=== PATIENT | female | born 1975 | race Caucasian/White ===

== ENCOUNTER 2024-04-18 10:33 | Outpatient (REF) | payer BC, SELFPAY ==
--- NOTE | ~2024-04-18 | XR_ITS ---
EXAMINATION: XR KNEE, LEFT CLINICAL INFORMATION: Pain in left knee COMPARISON: None available. TECHNIQUE: Three views of the left knee. FINDINGS: Small tricompartmental osteophytes. Moderate narrowing of the medial compartment. No significant joint effusion. XR/XR knee LT 3V IMPRESSION: Moderate degenerative changes. Electronically signed by: Marcela Haro MD 05/15/2024 10:05 AM EDT
== END 2024-04-18 10:34 | disposition home or self-care (01) ==
LOC: HO.HOSX 10:33
PROVIDERS: PCP Internal Medicine; Visit Provider Orthopaedic Surgery
DX: M25.562 Pain in left knee (principal)
CPT/HCPCS: 73562

== ENCOUNTER 2024-04-18 11:07 | Outpatient (AMB) | payer BC, SELFPAY ==
--- NOTE | 2024-04-18 11:07 | MHC.OFFVIS ---
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 She describes her pain as sharp in nature. Most of the pain is along the medial aspect of her knee. Her pain has gotten worse over the last year in spite of continued non operative treatments. She has been to formal physical therapy which seemed to aggravate her pain. She has also tried Tylenol and anti-inflammatory medicines which gave her minimal relief. She also tried prednisone which gave her only temporary relief. She has had 2 cortisone injections. The most recent injection gave her no relief. She states that her left knee will give out several times per day. She was told by another orthopedic surgeon that she might need total knee replacement surgery. Allergies No Known Allergies Allergy (Verified 04/18/24 11:08) Medication List - Last Reconciled 04/18/24 by Gerhard Martinez MD estradiol (Climara) 1 patch transdermal QWEEK progesterone micronized mg PO semaglutide (weight loss) (Wegovy) mg subcut Physical Exam Const Other: Well-nourished well-developed very friendly female awake alert and oriented x3 in no acute distress Extrem Other: Bilateral lower extremity examination shows good capillary refill, no skin lesions noted, normal sensation light touch Left knee examination shows a minimal effusion, mild crepitus with range of motion, tenderness along her medial joint line, positive Lazaro's test, no instability Results Reviewed Results Reviewed: Standing full weight-bearing x-rays of the patient's left knee show mild to moderate joint space narrowing, no acute bony abnormalities MRI of the patient's left knee shows mild to moderate diffuse degenerative changes as well as a tear of the medial meniscus, no acute bony abnormalities Assessment & Plan Assessment & Plan (1) Left knee pain: Code(s): M25.562 - Pain in left knee Category: Medical Plan Mrs. Garcia presents with progressively worsening left knee pain and mechanical symptoms due to early degenerative joint disease as well as a tear of her medial meniscus. I had a lengthy discussion with the patient regarding the treatment options. She wishes to hold off on total knee replacement surgery for as long as possible. The risks and benefits of left knee arthroscopic surgery were discussed at length with the patient. The patient does understand that she may not get 100% relief of her symptoms depending on the severity of her degenerative changes. I do feel that the arthroscopic procedure would give her significant relief of her mechanical symptoms and possibly her pain. The patient wishes to proceed with left knee arthroscopic surgery. Surgery will most likely involve left knee arthroscopic partial medial meniscectomy. She will be scheduled for next available date. She will follow-up as instructed. Feel free to call me at any time should questions regarding her orthopedic management arise. Thank you very much for asking me to see this very friendly patient. I spent 20 minutes in reviewing the patient's records and imaging studies, seeing the patient and documenting in the medical record. Orders: Orders XR knee LT 3V Today M25.562 - Pain in left knee Medications: New meloxicam 15 mg PO DAILY PRN 30 tabs 2RF pain Coding Level of Care Code Est Pt Level 3 (87622) Diagnoses Left knee pain M25.562
== END 2024-04-18 11:36 | disposition home or self-care (01) ==
LOC: HO.HOS 11:07
PROVIDERS: PCP Internal Medicine; Visit Provider Orthopaedic Surgery
DX: M25.562 Pain in left knee (principal)
CPT/HCPCS: 99214

== ENCOUNTER 2024-05-11 06:50 | Day surgery (SDC) | payer BC, SELFPAY ==
--- NOTE | 2024-05-10 10:20 | P.CONAN_ITS ---
Documented by User: Wanda Subramanian NP 05/10/24 10:21 HPI - Anesthesia Eval Consult details Narrative: 49yo F for Left Knee Arthroscopy with partial medial meniscectomy Anesthesia Pre-Procedure Meds Is the patient on any of the following meds?: GLP1/DPP4 PMFSH Active Problems Active Problems: All Active Problems Left knee pain (Acute) Past Medical History Medical History delivery delivered Surgical History Surgical History H/O adenoidectomy Social History Social History Patient Tobacco Use Status: Never used Tobacco Use of substances other than those prescribed or required for medical reasons: No Are you DNR?: No Advance Directives: No Advance Directives Information Provided: Yes Advance Directives on File: No Recently lost weight without trying: No Nutrition Risks: No Nutritional Risk Patient : No Meds Allergies Allergy/AdvReac Type Severity Reaction Status Date / Time No Known Allergies Allergy Verified 04/18/24 11:08 Active Medications: Current Medications Cefazolin Sodium/Dextrose (Ancef) 2 gm in 50 mls @ 100 mls/hr IV PREOP ONE Stop: 05/11/24 06:09 Home Medications ?Medication ?Instructions ?Recorded ?Confirmed ?Last Taken ?Type estradiol 0.025 mg/24 hr weekly 1 patch transdermal QWEEK 04/18/24 04/18/24 Unknown History transdermal patch (Climara) progesterone micronized 200 mg mg PO 04/18/24 04/18/24 Unknown History capsule semaglutide (weight loss) 0.25 mg subcut 04/18/24 04/18/24 04/26/24 History mg/0.5 mL subcutaneous pen injector (Wegovy) Assessment and Plan Assessment Anesthesia Assessment: Chart Reviewed Documented by User: Kelsey Lanza MD 05/11/24 08:33 [facility] Past Medical History Medical History delivery delivered Family History Family history of problems with anesthesia: No Surgical History Surgical History H/O adenoidectomy History of Problems with Anesthesia: No Social History Social History Patient Tobacco Use Status: Never used Tobacco Use of substances other than those prescribed or required for medical reasons: No Are you DNR?: No Advance Directives: No Advance Directives Information Provided: Yes Advance Directives on File: No Recently lost weight without trying: No Nutrition Risks: No Nutritional Risk Patient : No Meds Allergies Allergy/AdvReac Type Severity Reaction Status Date / Time No Known Allergies Allergy Verified 04/18/24 11:08 Home Medications ?Medication ?Instructions ?Recorded ?Confirmed ?Last Taken ?Type estradiol 0.025 mg/24 hr weekly 1 patch transdermal QWEEK 04/18/24 04/18/24 Unknown History transdermal patch (Climara) progesterone micronized 200 mg mg PO 04/18/24 04/18/24 Unknown History capsule semaglutide (weight loss) 0.25 mg subcut 04/18/24 04/18/24 04/26/24 History mg/0.5 mL subcutaneous pen injector (Wegovy) Exam Airway Mallampati Class: II TM Dist: >3cm Neck ROM: Full Heart: rrr Lungs: cta Assessment and Plan Assessment Anesthesia Assessment: Anesthesia Plan Discussed Final Anesthetic Review Family History of Problems with Anesthesia: No History of Problems with Anesthesia: No NPO: Yes ASA Class: II (laryngitis with hoarse voice, no redness, no fever no signs of infection , no productive cough . risks of intra op bronchospasm explained , pt agrees to proceed, covid negative) Final Preanesthetic Review: No Changes in Pt Med Stat, Meds/Allgs Chart Review ed, Consent Obtained/Reviewed and Anes Risks/Benef Reviewed Patient Risk: Low Procedure Risk: Low Anesthetic Plan Anesthetic Plan: GA Disposition: Standard PACU
[2024-05-11] VITALS (16 sets, daily range): BP systolic 121–170; BP diastolic 60–96; PULSE 89–102; RESP 14–20; TEMP 36.2–36.5; O2SAT 97–99; BMI 37.3
[2024-05-11 08:02] LABS: COVID-19 Test Negative (Negative); IDNOW Serial# 152EDE1D
[2024-05-11] MEDS: Albuterol Sulfate (0.083%) 2.5 MG/3 ML VIAL.NEB INHALE (08:48)
[2024-05-11] MEDS: Lactated Ringers 1,000 ML 100 ML IVCONT (08:50)
[2024-05-11] MEDS: dexAMETHasone sod phosphate 4 MG/ML VIAL IVPUSH (08:53)
--- NOTE | 2024-05-11 10:16 | PM.OP ---
Brief Operative Note Date of Service: 05/11/24 Pre-op diagnosis: Left knee medial meniscus tear, left knee degenerative joint disease Post-op diagnosis: same Procedure: Left knee diagnostic arthroscopy with left knee arthroscopic partial medial meniscectomy, left knee arthroscopic chondroplasty of the undersurface of the patella as well as the medial femoral condyle Implants: none Surgeon: Gerhard Martinez MD Anesthesia: GLMA Was an Field Foreman used for this Procedure?: No Estimated blood loss (mL): 10 Pathology: none sent Condition: stable Disposition: PACU
--- NOTE | 2024-05-11 10:17 | P.OP_ITS ---
Operative Note Operative Note Date of Service: 05/11/24 Narrative: After the patient was identified as Tabatha Garcia and her left knee was initialed by myself they were brought to the operating room where general anesthesia was induced by the anesthesiologist in routine fashion. The patient was given 2 g of IV Ancef preoperatively for infection prophylaxis. The patient's left lower extremity was prepped and draped in sterile fashion. A formal time-out was completed. Marcaine was injected into the planned incision sites as well as the patient's left knee joint. A #11 scalpel blade was used to make an anterolateral portal 1 cm proximal to the joint line and 1 cm lateral to the pa tellar tendon. Blunt trocar technique was used to enter the suprapatellar pouch with the knee in extension. Diagnostic arthroscopy showed multiple bands of thickened plica which would be excised at the end of the procedure. There were no loose bodies or abnormalities found in either the medial or lateral gutters. The articular surface of the patella showed diffuse grade 2 degenerative changes. The trochlear groove articular surface showed diffuse grade 1 degenerative changes. The patient's knee was flexed to 45 degrees and a valgus force was placed upon it. The medial compartment was entered. An anteromedial portal was made 1 cm proximal to the joint line and 1 cm medial to the patellar tendon. Probing of the medial meniscus showed a radial tear of the posterior horn. A partial medial meniscectomy was performed using the arthroscopic shaver. Following the partial meniscectomy the remainder of the meniscus tissue was stable. There were diffuse grades 2 and 3 degenerative changes of the medial femoral condyle as well as grade 1 degenerative changes of the medial tibial plateau. The articular surface of the medial femoral condyle was then made smooth using the arthroscopic shaver. The articular surface of the medial tibial plateau was already smooth so no chondroplasty was indicated. The patient's knee was placed into a neutral position. There was no injury to the anterior cruciate ligament. The patient's knee was then placed in the figure of 4 position and the lateral compartment was entered. There was no evidence of lateral meniscus tearing. There were minimal degenerative changes of the lateral femoral condyle and lateral tibial plateau. The patient's knee was once again brought into extension and the suprapatellar pouch was entered. The arthroscopic shaver and the ArthroCare Wand were used to excise the thickened bands of plica. The undersurface of the patella was then made smooth using the arthroscopic shaver. The articular surface of the trochlear groove was already smooth so no chondroplasty was indicated. The knee joint was irrigated and then drained. All arthroscopic instruments were removed. The 2 portals were closed with 3-0 nylon interrupted suture. The knee joint was injected with Marcaine. Dry sterile dressing and Berny bandages were placed over the patient's knee. The patient was awoken and extubated in the operating room. The patient was transferred to the recovery room in stable condition.
[2024-05-11] MEDS: fentaNYL citrate/PF 100 MCG/2 ML VIAL 25 MCG IVPUSH ×5 (10:35→11:20)
[2024-05-11] MEDS: cefTRIAXone sodium 1 GM in 0.9 % Sodium Chloride 50 ML IV (10:43)
[2024-05-11] MEDS: ondansetron HCL 4 MG/2 ML VIAL IVPUSH (10:55)
== END 2024-05-11 12:40 | disposition home or self-care (01) ==
PROVIDERS: Anesthesiology; PCP Internal Medicine; Visit Provider Orthopaedic Surgery
PROC: (CPT 29870; principal; 2024-05-11 09:00)
DX: S83.242A Other tear of medial meniscus, current injury, left knee, initial encounter (principal); X58.XXXA Exposure to other specified factors, initial encounter; Y93.9 Activity, unspecified; Y92.9 Unspecified place or not applicable; Y99.9 Unspecified external cause status; M17.12 Unilateral primary osteoarthritis, left knee; M25.362 Other instability, left knee; M67.52 Plica syndrome, left knee; Z11.52 Encounter for screening for COVID-19; Z79.85 Long-term (current) use of injectable non-insulin antidiabetic drugs; Z79.899 Other long term (current) drug therapy
CPT/HCPCS: 29881; 87635; 94640; J0131; J0171; J0690; J0696; J1100; J1885; J2405; J2704; J2795; J3010

== ENCOUNTER → 2024-05-11 06:50 | Outpatient (BNV) | payer BC, SELFPAY | PROVIDERS: PCP Internal Medicine; Visit Provider Orthopaedic Surgery | DX: S83.242A Other tear of medial meniscus, current injury, left knee, initial encounter (principal) | CPT/HCPCS: 29881 ==

== ENCOUNTER 2024-05-24 14:28 | Outpatient (AMB) | payer BC, SELFPAY ==
--- NOTE | 2024-05-24 15:16 | MHC.OFFVIS ---
Intake Visit Reasons: PO LT knee 05/11/24 Intake Note: Tabatha is a 49 year old female who presents with complaints of mild discomfort in her left knee after undergoing left knee arthroscopic surgery on 05/11/2024. She is no longer taking narcotics for discomfort. She continues with her home stretching program. She denies any fevers or chills. Allergies No Known Allergies Allergy (Verified 04/18/24 11:08) Medication List - Last Reconciled 05/25/24 by Gerhard Martinez MD estradiol (Climara) 1 patch transdermal QWEEK meloxicam 15 mg PO DAILY PRN progesterone micronized mg PO semaglutide (weight loss) (Wegovy) mg subcut PFSH Medical History delivery delivered Surgical History H/O adenoidectomy Social History Patient Tobacco Use Status: Never used Tobacco Physical Exam Extrem Other: Left knee examination shows that the surgical incisions are healing well, no erythema, minimal discomfort with range of motion Assessment & Plan Assessment & Plan (1) Left knee pain: Code(s): M25.562 - Pain in left knee Category: Medical Plan Ms. Garcia is doing well after undergoing left knee arthroscopic surgery on 05/11/2024. Her sutures were removed and Steri-Strips placed over her incisions. She will gradually progress to activities as tolerated. I have cleared her to return to work. She will contact me prior to her follow-up appointment in 6 weeks should any questions or concerns arise. Feel free to call me at any time should questions regarding her orthopedic management arise. Coding Level of Care Code Global (03613) Diagnoses Left knee pain M25.562
== END 2024-05-24 15:39 | disposition home or self-care (01) ==
PROVIDERS: PCP Internal Medicine; Visit Provider Orthopaedic Surgery
DX: M25.562 Pain in left knee (principal)
CPT/HCPCS: 99024

== ENCOUNTER → 2024-05-24 14:28 | Outpatient (BNVA) | payer BC, SELFPAY | PROVIDERS: PCP Internal Medicine; Visit Provider Orthopaedic Surgery ==

== ENCOUNTER 2024-06-26 14:06 | Outpatient (AMB) | payer BC, SELFPAY ==
--- NOTE | 2024-06-26 14:07 | MHC.OFFVIS ---
Intake Visit Reasons: PO LT knee 05/11/24 Intake Note: Tabatha is a 49 year old female who presents with mild to moderate discomfort in her left knee after undergoing left knee arthroscopic surgery on 05/11/2024. She tried taking meloxicam which seemed to give her a rash. She has tried Tylenol which gives her only mild relief. She denies any fevers or chills. She continues with her activity modifications. Allergies No Known Allergies Allergy (Verified 06/26/24 14:08) Medication List - Last Reconciled 06/26/24 by Gerhard Martinez MD estradiol (Climara) 1 patch transdermal QWEEK meloxicam 15 mg PO DAILY PRN progesterone micronized mg PO semaglutide (weight loss) (Wegovy) mg subcut PFSH Medical History delivery delivered Surgical History H/O adenoidectomy Social History Patient Tobacco Use Status: Never used Tobacco Physical Exam Extrem Other: Left knee examination shows that the surgical incisions are well healed, no erythema, mild crepitus with range of motion, no instability Assessment & Plan Assessment & Plan (1) Arthritis of left knee: Code(s): M17.12 - Unilateral primary osteoarthritis, left knee Category: Medical Plan Mrs. Garcia presents with continued discomfort in her left knee after undergoing left knee arthroscopic surgery on 05/11/2024 due to degenerative joint disease. I discussed with the patient the fact that her symptoms will likely continue to improve over the next few months. She will continue with her activity modifications. I did give her a prescription for tramadol to help with her pain. She will contact me prior to her follow-up appointment in 6 weeks should any questions or concerns arise. Feel free to call me at any time should questions regarding her orthopedic management arise. Medications: New tramadol 50 mg PO Q12H PRN 40 tabs 0RF pain Coding Level of Care Code Global (11122) Diagnoses Arthritis of left knee M17.12
== END 2024-06-26 14:27 | disposition home or self-care (01) ==
PROVIDERS: PCP Internal Medicine; Visit Provider Orthopaedic Surgery
DX: M17.12 Unilateral primary osteoarthritis, left knee (principal)
CPT/HCPCS: 99024

== ENCOUNTER → 2024-06-26 14:06 | Outpatient (BNVA) | payer BC, SELFPAY | PROVIDERS: PCP Internal Medicine; Visit Provider Orthopaedic Surgery ==